=== PATIENT | female | born 1965 | race Caucasian/White ===

== ENCOUNTER 2017-06-23 09:29 | Emergency (ER) | payer OTHER ==
--- OUTSIDE RECORDS SUMMARY | 2017-06-23 09:37 | XMS REPORT ---
:1965 External Reference #:[id number] Author Organization [facility] Address [address] [place] [address] Phone [phone] Care Team Providers Name Role Phone HCP given Primary Care Physician Unavailable Payers Type Date Identification Numbers Payment Provider Subscriber Health Maintenance Policy Number: [id number] Loraine Tk [facility] PayID: [id number] [address] [place] [address] Problems Date Description Provider Status Onset: 07/22/2004 Benign essential hypertension Sourav Woodson M.D. Active Onset: 01/14/2015 Essential hypertension Sourav Woodson M.D. Active Onset: 03/14/2017 Anxiety state Adis Boggs D.O. Active Onset: 03/14/2017 Moderate recurrent major depression Adis Boggs D.O. Active Family History Date Family Member(s) Problem(s) Comments Father High Blood Pressure : Father due to Lung (04/29/2015) (age Cancer 75 Years) Onset: Father Lung Cancer metastatic smoker quit (01/14/2015) (age in early 90s smoked 1/3 73 Years) or so ppd - for 25 yrs Onset: Father Colon Polyps benign polyps (05/09/2015) (age 68 Years) Mother Depression Mother High Blood Pressure Mother Rheumatoid Arthritis Mother Cervical Cancer COMPLETE HYST.AT AGE 27 leaving one ovary First Daughter Erema 28 months Number of Siblings Siblings: 1 sister First Sister Obesity First Sister Smoker First Sister Depression Paternal Grandmother Congestive Heart Failure (CHF) : (age 75 Paternal Grandmother due to NC Years) Paternal Grandmother High Blood Pressure Maternal Grandfather High Blood Pressure Maternal Grandmother Stroke Maternal Grandmother High Blood Pressure Maternal Grandmother Rheumatoid Arthritis Paternal Uncles Alcoholism Paternal Uncles Pancreatic Cancer in 60s Paternal Aunts Alcoholism Onset: (age 74 Paternal Aunts Alzheimer's Disease Years) Paternal Aunts Esophagus Cancer smoker Paternal Aunts Colon Cancer in 60s Social History Type Date Description Comments Education has bachelor's degreenursing degree - 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 Uses sunscreen Currently Active The patient is currently sexually active Contraceptive Methods Current methods of control used include condoms Age 1st [place] First intercourse was at age 17 # Partners in a Lifetime The patient has had over 10 sexual partners STD's No STD history Additional Info Sexual preference is men Allergies, Adverse Reactions, Alerts Date Description Reaction Status Severity Comments 07/22/2004 NKDA active Medications Medication Date Status Form Strength Qnty SIG Indications Ordering Provider Venlafaxine HCL Active Caps ER 150mg 90caps 1 capsule F41.9 Sopchak, ER 017 24HR by mouth Adis, D.O. daily for anxiety/de pression I10 Zyrtec Allergy 03/06/2014 Active Capsules 10mg OTC 1 cap by 472.0 Unknown mouth every day /prn Bisoprolol 08/15/2013 Active Tablets 5-6.25 90tab 1 by mouth I10 Sopchak, Fumarate/Hydrochl mg s daily Adis, orothiazide D.O. Multivitamins 07/06/2008 Active Tablets 100ta 1 po qd Sourav Woodson M.D. Amlodipine 12/20/2006 Active Tablets 5mg 90tab take 1 tablet I10 Sopchak, Besylate s by mouth once Adis, daily for D.O. blood pressure Doxycycline 02/19/2016 - Hx Capsules 100mg 42cap 1 every day I10 Sourav Riosclnataly 04/19/2016 s starting 2 A. days before Klepack, travel and M.D. every day for 4 weeks after returning Typhoid Vaccine 02/19/2016 - Hx 4unit 1 every other I10 Sourav Live Oral 04/19/2016 s day for 4 A. doses Lucien Woodson Melatonin 02/05/2016 - Hx Tablets 5mg as needed Unknown 09/02/2016 Sub Cyclobenzaprine 03/28/2015 - Hx Tablets 5mg 14tab 1-2 at home S39.012 Sourav HCL 04/03/2015 s every 4h as A A. needed for Chintan, muscle spasm M.D. pain don't take in same 24 hours as venlafaxine Bisoprolol 08/15/2013 - Hx Tablets 2.5-6. 90tab Take 1 Tablet 401.1 Sopchak, Fumarate/Hydrochl 08/15/2013 25mg s Once Daily Adis orothiazide For Blood D.O. Pressure. Venlafaxine HCL 05/11/2013 - Hx Tablets ER 75mg 90tab 1 every day F41.9 Sourav ER 03/14/2017 24HR s A. Lucien Woodson I10 Bisoprolol 05/04/2013 Hx Tablets 2.5-6.25mg 90tabs Take 1 401.1 Sourav Fumarate/Hydrochlorothiazide - Tablet A. 08/15/2013 Once Daily Chintan, For Blood M.D. Pressure. Pyridium 02/24/2013 Hx Tablets 200mg 9tabs 1 tab po 788.1 Silcoff, - tid, prn Romeo, 03/05/2013 M.D. Cipro 02/24/2013 Hx Tablets 250mg 6tabs 1 tab bid 788.1 Silcoff, - x 3 Romeo, 02/27/2013 M.D. Mediplast 40% Salicylic Acid 10/29/2011 Hx QS1Mo cut to the 078.19 Sourav Plaster - size of A. 02/26/2012 the corn Klepack, and apply M.D. after every shower qd to every other day Naftin 11/05/2010 Hx Cream 1% 90gm apply to 110.1 Sourav - entire A. 05/04/2011 foot and Klepack, toes and M.D. between toes bid Zyrtec 10/09/2010 Hx Tablets 10mg OTC take 1 472.0 Sourav - tablet A. 03/06/2014 evryday Chintan for M.D. allergies Ziac 10/09/2010 Hx Tablets 2.5-6.25mg 90tabs 1 qd for 401.1 Sourav - blood A. 05/04/2013 pressure Chintan, hold until M.D. needed Azithromycin 04/21/2010 Hx Tablets 250mg 6tabs 2 tabs day 462 Monique, - one, one Romeo, 06/30/2010 tab days M.D. 2-5 Guaifenesin/Codeine 04/21/2010 Hx Solution 100-10mg/5M 100ml 1-2 tsps 786.2 Monique, - L q4-6 hrs, Romeo, 07/28/2010 prn Lucien Claritin-D 24 Hour 10/14/2009 Hx Tablets 90tabs 1 po qpm 472.0 Sourav - ER 24HR A. 09/08/2010 Lucien Woodson Methylphenidate HCL 07/08/2009 Hx Tablets 10mg sig /2 to 314.00 Sourav - 2 bid A. 04/25/2012 Lucien Woodson Tamiflu 10/14/2008 Hx 75mg 10units 1 po bid 487.1 Sourav - A. 10/19/2008 Lucien Woodson Clarithromycin 09/10/2008 Hx Tablets 250mg 30tabs 1 po bid 786.2 Sourav - ANando 09/20/2008 Lucien Woodson Mediplast 40% Salicylic Acid 07/06/2008 Hx QS1Mo cut to the 700 Sourav Plaster - size of A. 07/26/2008 the corn Chintan, and apply M.DNando after every shower qd Amoxicillin 03/26/2008 Hx 500mg 45units 1 tid 461.2 Sourav - until gone A. 04/09/2008 Lucien Woodson Zithromax 03/09/2008 Hx Tablets 250mg 1Pack two 462 Sourav - tablets po A. 03/19/2008 day 1 then Chintan 1 tablet M.D. po day 2-5 Biaxin 09/10/2006 Hx Tablets 250mg 20tabs 1 PO bid 462 Sourav - Until Gone A. 09/20/2006 (Take Two Klepack, To Marline Taylor) Wellbutrin SR 12/20/2005 Hx Tablets 150mg 1 twice a 300.4 Sourav - week for a A. 01/19/2006 month then gutierrez Woodson M.D. Biaxin 06/22/2005 Hx Tablets 250mg 28tabs 1 PO bid 461.0 Sourav - Until Gone A. 07/06/2005 Lucien Woodson Amoxicillin 06/07/2005 Hx Tablets 500mg 30tabs 1 PO tid 461.9 Monique, - For Romeo, 06/17/2005 Sinusitis Lucien Ziac 01/16/2005 Hx Tablets 2.5mg;6.25 90tabs 1 qd for 401.1 Sourav - mg blood A. 10/09/2010 pressure Lucien Woodson Zoloft 07/22/2004 Hx Tablets 50mg 30tabs 1 po qd Sourav - A. 07/22/2004 Lucien Woodson Norvasc 07/22/2004 Hx Tablets 10mg 90tabs 1 po qd 401.1 Sourav - A. 09/20/2006 Lucien Woodson Dyazide 07/22/2004 Hx Capsules 25mg;37.5 90caps 1 for BP 401.1 Sourav - mg qd A. 01/16/2005 Lucien Woodson Wellbutrin SR 07/22/2004 Hx Tablets 150mg 90tabs 1 qd 300.4 Sourav - Priyanka 12/20/2005 Lucien Woodson Medications Administered in Office Medication Date Status Form Strength Qnty SIG Indications Ordering Provider TB Intradermal Administered Injection Sourav Reid 014 Lucien Woodson TB Intradermal Administered Injection Farideh Reid 013 [place], P.ANando TB Intradermal Administered Injection Sourav Reid 013 Lucien Woodson Immunizations CPT Code Status Date Vaccine Lot # [id number] Given 12/24/2016 Influenza Virus Vaccine, Quadrivalent, Split, Preservative Free 89263 Given 09/03/2016 Hep A, Adult [id number] 32836 Given 02/20/2016 Typhoid Vaccine Oral 62139 Given 02/19/2016 Hep A, Adult [id number] 84949 Given 01/30/2016 Influenza Virus Vaccine, Quadrivalent, Split, Im Use U-Flu Given 02/26/2015 Influenza,Unspecified 23986 Given 03/07/2014 Flu, Split Virus 3Yrs 79802 Given 01/22/2013 Flu, Split Virus 3Yrs 55969 Given 10/30/2012 MMR Virus Immunization [id number] 85766 Given 05/01/2012 Flu, Split Virus 3Yrs [id number] 46211 Given 03/02/2011 Flu, Split Virus 3Yrs [id number] 64314 Given 05/01/2010 MMR Virus Immunization [id number] 83263 Given 03/06/2009 flu mist - live influenza virus vaccine for [id number] intranasal use 71856 Given 03/09/2008 Adacel or Boostrix, TDaP [id number] 77900 Given 02/13/2008 Flu, Split Virus 3Yrs [id number] 14779 Given 03/14/2007 Flu, Split Virus 3Yrs [id number] 45238 Given 03/22/2006 Td Immunization [id number] 22923 Given 03/22/2006 Flu, Split Virus 3Yrs [id number] 73625 Given 03/04/1999 Hep B Immunization, Adult 13080 Given 08/08/1998 Hep B Immunization, Adult 52844 Given 07/11/1998 Hep B Immunization, Adult Vital Signs Date Vital Result Comment 05/30/2017 BP Systolic 146 mmHg missed morning BP med BP Diastolic 96 mmHg missed morning BP med Weight 173.00 lb 04/15/2017 BP Systolic 124 mmHg BP Diastolic 82 mmHg Height 62 inches 5'2" Weight 167.00 lb BMI (Body Mass Index) 30.5 kg/m2 03/14/2017 BP Systolic 130 mmHg BP Diastolic 84 mmHg Height 62 inches 5'2" Weight 171.00 lb BMI (Body Mass Index) 31.3 kg/m2 09/03/2016 BP Systolic 118 mmHg BP Diastolic 60 mmHg Heart Rate 66 /min Respiratory Rate 16 /min Height 62.25 inches 5'2.25" Weight 174.00 lb BMI (Body Mass Index) 31.6 kg/m2 04/20/2016 BP Systolic 138 mmHg BP Diastolic 90 mmHg Body Temperature 98.3 F Weight 166.00 lb 02/06/2016 BP Systolic 136 mmHg BP Diastolic 82 mmHg Heart Rate 70 /min Respiratory Rate 16 /min Height 62 inches 5'2" Weight 162.00 lb BMI (Body Mass Index) 29.6 kg/m2 08/11/2015 BP Systolic 130 mmHg BP Diastolic 78 mmHg Heart Rate 59 /min Weight 161.00 lb 05/09/2015 BP Systolic 135 mmHg k BP Diastolic 85 mmHg k Heart Rate 80 /min rrr Weight 161.00 lb 03/28/2015 BP Systolic 132 mmHg BP Diastolic 90 mmHg Height 62.5 inches 5'2.50" Weight 165.00 lb BMI (Body Mass Index) 29.7 kg/m2 01/14/2015 BP Systolic 122 mmHg k BP Diastolic 80 mmHg k Heart Rate 70 /min Respiratory Rate 16 /min Weight 159.00 lb 09/26/2014 BP Systolic 144 mmHg k BP Diastolic 83 mmHg k Heart Rate 70 /min rrr Respiratory Rate 16 /min Height 62.5 inches 5'2.50" Weight 162.00 lb BMI (Body Mass Index) 29.2 kg/m2 08/09/2014 BP Systolic 148 mmHg BP Diastolic 84 mmHg Weight 164.00 lb 06/13/2014 BP Systolic 149 mmHg home rdings not taken BP Diastolic 89 mmHg home rdings not taken Heart Rate 80 /min Weight 163.00 lb 03/07/2014 BP Systolic 138 mmHg BP Diastolic 84 mmHg Height 62.25 inches 5'2.25" Weight 154.00 lb BMI (Body Mass Index) 27.9 kg/m2 10/27/2013 BP Systolic 124 mmHg BP Diastolic 74 mmHg 10/25/2013 BP Systolic 118 mmHg K BP Diastolic 86 mmHg K Heart Rate 80 /min Weight 146.00 lb 09/10/2013 BP Systolic 138 mmHg home giiapxhh=232/80s BP Diastolic 90 mmHg home imsxpben=660/80s Heart Rate 70 /min rrr Respiratory Rate 16 /min Height 62 inches 5'2" Weight 166.00 lb BMI (Body Mass Index) 30.4 kg/m2 08/15/2013 BP Systolic 130 mmHg BP Diastolic 92 mmHg Body Temperature 98.1 F Weight 144.00 lb 06/11/2013 BP Systolic 136 mmHg BP Diastolic 90 mmHg Heart Rate 80 /min Weight 142.00 lb shoes on 05/11/2013 BP Systolic 140 mmHg BP Diastolic 90 mmHg 04/26/2013 BP Systolic 124 mmHg BP Diastolic 80 mmHg BP Systolic Recheck 132 mmHg BP Diastolic Recheck 76 mmHg Heart Rate 76 /min rrr Weight 140.00 lb 03/07/2013 BP Systolic 141 mmHg BP Diastolic 75 mmHg Heart Rate 67 /min Body Temperature 98.5 F 02/24/2013 BP Systolic 149 mmHg BP Diastolic 89 mmHg Heart Rate 68 /min Body Temperature 98.4 F Height 62 inches 5'2" Weight 143.00 lb BMI (Body Mass Index) 26.2 kg/m2 11/10/2012 BP Systolic 126 mmHg BP Diastolic 88 mmHg Heart Rate 71 /min Body Temperature 98.3 F 10/30/2012 BP Systolic 130 mmHg BP Diastolic 90 mmHg Weight 142.00 lb 05/01/2012 BP Systolic 130 mmHg bp at home same BP Diastolic 90 mmHg bp at home same Heart Rate 80 /min Respiratory Rate 16 /min Height 62 inches 5'2" Weight 154.00 lb goal in 2-3 mos would 143 BMI (Body Mass Index) 28.2 kg/m2 Last Menstrual Period 0 10/29/2011 BP Systolic 122 mmHg BP Diastolic 80 mmHg Height 62 inches 5'2" Weight 156.00 lb BMI (Body Mass Index) 28.5 kg/m2 04/29/2011 BP Systolic 120 mmHg BP Diastolic 86 mmHg Heart Rate 78 /min Weight 156.00 lb Last Menstrual Period 0 11/05/2010 BP Systolic 120 mmHg BP Diastolic 86 mmHg 10/09/2010 BP Systolic 128 mmHg BP Diastolic 90 mmHg Height 62 inches 5'2" Weight 152.00 lb BMI (Body Mass Index) 27.8 kg/m2 08/14/2010 BP Systolic 130 mmHg BP Diastolic 90 mmHg 04/21/2010 BP Systolic 135 mmHg BP Diastolic 97 mmHg Heart Rate 98 /min Body Temperature 100.2 F Weight 150.00 lb Last Menstrual Period 0 04/14/2010 BP Systolic 134 mmHg BP Diastolic 86 mmHg BP Systolic Recheck 132 mmHg BP Diastolic Recheck 78 mmHg Heart Rate 70 /min Respiratory Rate 16 /min Height 62.5 inches 5'2.50" Weight 155.00 lb BMI (Body Mass Index) 27.9 kg/m2 11/04/2009 BP Systolic 120 mmHg BP Diastolic 86 mmHg BP Systolic Recheck 125 mmHg BP Diastolic Recheck 74 mmHg Heart Rate 16 /min Body Temperature 98.5 F Weight 148.00 lb 07/08/2009 BP Systolic 134 mmHg BP Diastolic 80 mmHg BP Systolic Recheck 124 mmHg BP Diastolic Recheck 76 mmHg Heart Rate 80 /min Weight 150.00 lb Last Menstrual Period 0 06/17/2009 BP Systolic 116 mmHg BP Diastolic 90 mmHg Body Temperature 98.4 F Weight 154.00 lb 02/18/2009 BP Systolic 132 mmHg BP Diastolic 94 mmHg Weight 149.00 lb Last Menstrual Period 0 11/05/2008 BP Systolic 146 mmHg BP Diastolic 80 mmHg BP Systolic Recheck 132 mmHg BP Diastolic Recheck 72 mmHg Heart Rate 70 /min Respiratory Rate 16 /min 10/14/2008 BP Systolic 150 mmHg BP Diastolic 96 mmHg Body Temperature 98.6 F Weight 144.00 lb Last Menstrual Period 0 09/10/2008 BP Systolic 126 mmHg BP Diastolic 90 mmHg Body Temperature 98.4 F Weight 147.00 lb 07/06/2008 BP Systolic 138 mmHg 140/92 Home Cuff BP Diastolic 80 mmHg 140/92 Home Cuff BP Systolic Recheck 136 mmHg BP Diastolic Recheck 82 mmHg Heart Rate 70 /min Respiratory Rate 16 /min Weight 151.00 lb 03/26/2008 BP Systolic 120 mmHg BP Diastolic 78 mmHg Body Temperature 98.5 F Height 62.3 inches 5'2.30" 03/09/2008 BP Systolic 120 mmHg on home wnboqwn=584/79 BP Diastolic 80 mmHg on home rdrirom=565/79 Heart Rate 80 /min Respiratory Rate 16 /min Height 62.3 inches 5'2.30" Weight 146.00 lb BMI (Body Mass Index) 26.4 kg/m2 11/21/2007 BP Systolic 118 mmHg BP Diastolic 80 mmHg Heart Rate 70 /min Respiratory Rate 16 /min Height 62.3 inches 5'2.30" Weight 145.00 lb BMI (Body Mass Index) 26.3 kg/m2 Last Menstrual Period 0 08/21/2007 BP Systolic 154 mmHg 146/100 on her machine BP Diastolic 90 mmHg 146/100 on her machine BP Systolic Recheck 146 mmHg p64 BP Diastolic Recheck 100 mmHg p64 Heart Rate 64 /min Respiratory Rate 17 /min Height 62.3 inches 5'2.30" Weight 142.00 lb BMI (Body Mass Index) 25.7 kg/m2 03/14/2007 BP Systolic 150 mmHg home doing well 120-110/62-80 BP Diastolic 90 mmHg home doing well 120-110/62-80 BP Systolic Recheck 148 mmHg BP Diastolic Recheck 80 mmHg Heart Rate 80 /min Respiratory Rate 16 /min Height 62.3 inches 5'2.30" Weight 137.00 lb BMI (Body Mass Index) 24.8 kg/m2 Last Menstrual Period 0 12/20/2006 BP Systolic 140 mmHg BP Diastolic 90 mmHg BP Systolic Recheck 142 mmHg BP Diastolic Recheck 92 mmHg BP Systolic Standing Resting Right Arm 140 mmHg BP Diastolic Standing Resting Right Arm 87 mmHg Heart Rate 70 /min Respiratory Rate 16 /min Height 62.3 inches 5'2.30" Weight 140.00 lb BMI (Body Mass Index) 25.4 kg/m2 Last Menstrual Period 0 10/04/2006 BP Systolic 122 mmHg BP Diastolic 84 mmHg Height 62.3 inches 5'2.30" 09/20/2006 BP Systolic 124 mmHg office visit--pts cuff 132/76----left arm BP Diastolic 80 mmHg office visit--pts cuff 132/76----left arm Height 62.3 inches 5'2.30" 09/06/2006 BP Systolic 120 mmHg 1teens over 70s BP Diastolic 90 mmHg 1teens over 70s Respiratory Rate 16 /min Body Temperature 98.8 F Height 62.3 inches 5'2.30" Weight 149.00 lb BMI (Body Mass Index) 27.0 kg/m2 06/21/2006 BP Systolic 142 mmHg BP Diastolic 86 mmHg BP Systolic Recheck 140 mmHg BP Diastolic Recheck 84 mmHg Heart Rate 80 /min Respiratory Rate 16 /min Height 62.3 inches 5'2.30" Weight 160.00 lb BMI (Body Mass Index) 29.0 kg/m2 03/22/2006 BP Systolic 120 mmHg BP Diastolic 78 mmHg Body Temperature 98.7 F Height 62.3 inches 5'2.30" Weight 160.00 lb BMI (Body Mass Index) 29.0 kg/m2 Last Menstrual Period 0 12/20/2005 BP Systolic 116 mmHg lg cuff BP Diastolic 78 mmHg lg cuff Height 62.3 inches 5'2.30" Weight 161.00 lb BMI (Body Mass Index) 29.2 kg/m2 09/25/2005 BP Systolic 116 mmHg PT. Machine 124/90 BP Diastolic 88 mmHg PT. Machine 124/90 Heart Rate 68 /min Respiratory Rate 16 /min Height 62.3 inches 5'2.30" Weight 166.00 lb BMI (Body Mass Index) 30.1 kg/m2 06/22/2005 BP Systolic 136 mmHg BP Diastolic 86 mmHg BP Systolic Recheck 138 mmHg BP Diastolic Recheck 85 mmHg Heart Rate 80 /min Respiratory Rate 16 /min Body Temperature 98.5 F Height 62.3 inches 5'2.30" Weight 163.00 lb BMI (Body Mass Index) 29.5 kg/m2 Last Menstrual Period 0 06/07/2005 BP Systolic 126 mmHg BP Diastolic 100 mmHg Body Temperature 98.0 F Height 62.3 inches 5'2.30" Weight 160.00 lb BMI (Body Mass Index) 29.0 kg/m2 03/23/2005 BP Systolic 136 mmHg (pt machine 138/92/right arm)left 162/100 BP Diastolic 90 mmHg (pt machine 138/92/right arm)left 162/100 BP Systolic Recheck 132 mmHg BP Diastolic Recheck 90 mmHg Heart Rate 80 /min Respiratory Rate 16 /min Height 62.3 inches 5'2.30" Weight 160.00 lb BMI (Body Mass Index) 29.0 kg/m2 03/23/2005 Height 62.3 inches 5'2.30" 01/16/2005 BP Systolic 158 mmHg BP Diastolic 100 mmHg BP Systolic Recheck 152 mmHg BP Diastolic Recheck 92 mmHg Heart Rate 80 /min rrr Respiratory Rate 16 /min Height 62.3 inches 5'2.30" Weight 156.00 lb BMI (Body Mass Index) 28.3 kg/m2 08/06/2004 BP Systolic 168 mmHg Pt's cuff L 172/107 BP Diastolic 100 mmHg Pt's cuff L 172/107 BP Systolic Recheck 148 mmHg With Large And Reg Cuff BP Diastolic Recheck 92 mmHg With Large And Reg Cuff Heart Rate 80 /min RRR Respiratory Rate 16 /min Height 62.3 inches 5'2.30" Weight 161.00 lb BMI (Body Mass Index) 29.2 kg/m2 07/22/2004 BP Systolic 150 mmHg BP Diastolic 100 mmHg BP Systolic Recheck 150 mmHg Large Adult Cuff BP Diastolic Recheck 90 mmHg Large Adult Cuff Heart Rate 90 /min RRR Respiratory Rate 16 /min Height 62.3 inches 5'2.30" Weight 167.00 lb BMI (Body Mass Index) 30.2 kg/m2 Results Test Date Test Result H/L Range Note Laboratory test finding 04/15/2017 Glucose 122 Laboratory test finding 10/25/2016 HPV Rna Ww/Reflex Negative Negative 1 , 2 Genotype Urine Micro Inhouse 09/03/2016 Ua WBC - 3 Ua RBC - 3 Ua Casts - 3 Ua Epi - 3 Ua Other - 3 Ua Glucose - 3 Ua Bilirubin - 3 Ua Ketones - 3 Ua Specific [place] 1.005 3 Ua Blood - 3 Ua PH 5.0 3 Ua Protein - 3 Ua Urobilinogen - 3 Ua Nitrite - 3 Ua Leukocytes - 3 Comp Metabolic Panel 08/31/2016 Sodium 139 mmol/L 133-145 Potassium 3.7 mmol/L 3.5-5.0 Chloride 99 mmol/L Low 101-111 Glucose 109 mg/dL High 70-100 Blood Urea Nitrogen 19 mg/dL 6-24 Creatinine 0.90 mg/dL 0.51-0.95 BUN/Creatinine Ratio 21.1 High 8-20 Calcium 9.8 mg/dL 8.6-10.3 Total Protein 6.9 g/dL 6.4-8.9 Albumin 4.4 g/dL 3.2-5.2 Globulin 2.5 g/dL 2-4 Albumin/Globulin Ratio 1.8 1-3 Total Bilirubin 0.60 mg/dL 0.2-1.0 Alt 25 U/L 7-52 Ast 18 U/L 13-39 Egfr Non- 66.0 >60 Egfr 84.9 >60 4 Co2 Carbon Dioxide 32 mmol/L 22-32 Anion Gap 8 mmol/L 2-11 Alkaline Phosphatase 55 U/L 34-104 CBC Auto Diff 08/31/2016 White Blood Count 5.4 10^3/uL 3.5-10.8 Red Blood Count 5.30 10^6/uL 4.0-5.4 Hemoglobin 15.6 g/dL 12.0-16.0 Hematocrit 45 % 35-47 Mean Corpuscular Volume 85 fL 80-97 Mean Corpuscular Hemoglobin 29 pg 27-31 Mean Corpuscular HGB Conc 35 g/dL 31-36 Red Cell Distribution Width 13 % 10.5-15 Platelet Count 203 10^3/uL 150-450 Mean Platelet Volume 8 um3 7.4-10.4 Abs Neutrophils 3.0 10^3/uL 1.5-7.7 Abs Lymphocytes 1.9 10^3/uL 1.0-4.8 Abs Monocytes 0.3 10^3/uL 0-0.8 Abs Eosinophils 0.1 10^3/uL 0-0.6 Abs Basophils 0 10^3/uL 0-0.2 Abs Nucleated RBC 0 10^3/uL Granulocyte % 55.5 % 38-83 Lymphocyte % 36.0 % 25-47 Monocyte % 6.3 % 1-9 Eosinophil % 1.4 % 0-6 Basophil % 0.8 % 0-2 Nucleated Red Blood Cells % 0 CBC Auto Diff 04/20/2016 White Blood Count 5.2 10^3/uL 3.5-10.8 Red Blood Count 5.03 10^6/uL 4.0-5.4 Hemoglobin 14.9 g/dL 12.0-16.0 Hematocrit 43 % 35-47 Mean Corpuscular Volume 85 fL 80-97 Mean Corpuscular Hemoglobin 30 pg 27-31 Mean Corpuscular HGB Conc 35 g/dL 31-36 Red Cell Distribution Width 12 % 10.5-15 Platelet Count 173 10^3/uL 150-450 Mean Platelet Volume 8 um3 7.4-10.4 Abs Neutrophils 3.3 10^3/uL 1.5-7.7 Abs Lymphocytes 1.5 10^3/uL 1.0-4.8 Abs Monocytes 0.2 10^3/uL 0-0.8 Abs Eosinophils 0.1 10^3/uL 0-0.6 Abs Basophils 0 10^3/uL 0-0.2 Abs Nucleated RBC 0 10^3/uL Granulocyte % 63.2 % 38-83 Lymphocyte % 29.9 % 25-47 Monocyte % 4.6 % 1-9 Eosinophil % 1.7 % 0-6 Basophil % 0.6 % 0-2 Nucleated Red Blood Cells % 0 Comp Metabolic Panel 04/20/2016 Sodium 139 mmol/L 133-145 Potassium 3.8 mmol/L 3.5-5.0 Chloride 102 mmol/L 101-111 Co2 Carbon Dioxide 31 mmol/L 22-32 Anion Gap 6 mmol/L 2-11 Glucose 85 mg/dL 70-100 Blood Urea Nitrogen 12 mg/dL 6-24 Creatinine 0.85 mg/dL 0.51-0.95 BUN/Creatinine Ratio 14.1 8-20 Calcium 9.4 mg/dL 8.6-10.3 Total Protein 6.8 g/dL 6.4-8.9 Albumin 4.4 g/dL 3.2-5.2 Globulin 2.4 g/dL 2-4 Albumin/Globulin Ratio 1.8 1-3 Total Bilirubin 0.50 mg/dL 0.2-1.0 Alkaline Phosphatase 48 U/L 34-104 Alt 22 U/L 7-52 Ast 17 U/L 13-39 Egfr Non- 70.5 >60 Egfr 90.7 >60 5 Laboratory test 03/06/2016 Rapid Strep Negative Negative 6 finding Molecular Laboratory test 09/18/2015 Surgical Interface SEE RESULT BELOW 7, 8 finding Order Urine Micro Inhouse 08/11/2015 Ua WBC 0-2 9 Ua RBC 0-2 9 Ua Casts - 9 Ua Epi 0-3 9 Ua Other - 9 Ua Glucose - 9 Ua Bilirubin - 9 Ua Ketones - 9 Ua Specific [place] 1.005 9 Ua Blood [place] Tr 9 Ua PH 5.0 9 Ua Protein - 9 Ua Urobilinogen - 9 Ua Nitrite - 9 Ua Leukocytes tr 9 Laboratory test finding 08/11/2015 Magnesium 2.0 mg/dL 1.9-2.7 Comp Metabolic Panel 08/11/2015 Sodium 139 mmol/L 133-145 Potassium 3.8 mmol/L 3.5-5.0 Chloride 101 mmol/L 101-111 Co2 Carbon Dioxide 32 mmol/L 22-32 Anion Gap 6 mmol/L 2-11 Glucose 80 mg/dL 70-100 Blood Urea Nitrogen 20 mg/dL 6-24 Creatinine 0.91 mg/dL 0.51-0.95 BUN/Creatinine Ratio 22.0 High 8-20 Calcium 9.4 mg/dL 8.6-10.3 Total Protein 6.5 g/dL 6.4-8.9 Albumin 4.5 g/dL 3.2-5.2 Globulin 2.0 g/dL 2-4 Albumin/Globulin Ratio 2.3 1-3 Total Bilirubin 0.60 mg/dL 0.2-1.0 Alkaline Phosphatase 47 U/L 34-104 Alt 19 U/L 7-52 Ast 18 U/L 13-39 Egfr Non- 65.4 >60 Egfr 84.2 >60 10 Laboratory test finding 08/11/2015 Erythrocyte Sed Rate 7 mm/Hr 0-30 Folic Acid (Folate) > 20.00 ng/mL >3.99 Heavy Metal Blool 08/11/2015 Arsenic <1 ng/mL 0-12 Lead <1.0 g/dL 0.0-4.9 Mercury 2 ng/mL 0-9 Cadmium 0.2 ng/mL 0.0-4.[address] [place] [id number] [place] [address] Guardian First Name TK Guardian Last Name NICOLE Home Phone [phone] Venous/Capillary Heavy Metals VENOUS Patient Race CAU 11 Laboratory test finding 08/11/2015 TSH (Thyroid Stim Horm) 1.46 ?IU/mL 0.34-5.60 Vitamin B12 716 pg/mL 180-914 12 CBC Auto Diff 08/11/2015 White Blood Count 4.4 10^3/uL 3.5-10.8 Red Blood Count 4.84 10^6/uL 4.0-5.4 Hemoglobin 14.7 g/dL 12.0-16.0 Hematocrit 41 % 35-47 Mean Corpuscular Volume 84 fL 80-97 Mean Corpuscular Hemoglobin 30 pg 27-31 Mean Corpuscular HGB Conc 36 g/dL 31-36 Red Cell Distribution Width 12 % 10.5-15 Platelet Count 200 10^3/uL 150-450 Mean Platelet Volume 8 um3 7.4-10.4 Abs Neutrophils 2.3 10^3/uL 1.5-7.7 Abs Lymphocytes 1.6 10^3/uL 1.0-4.8 Abs Monocytes 0.3 10^3/uL 0-0.8 Abs Eosinophils 0.1 10^3/uL 0-0.6 Abs Basophils 0.1 10^3/uL 0-0.2 Abs Nucleated RBC 0.03 10^3/uL Granulocyte % 52.6 % 38-83 Lymphocyte % 36.2 % 25-47 Monocyte % 7.9 % 1-9 Eosinophil % 1.7 % 0-6 Basophil % 1.6 % 0-2 Nucleated Red Blood Cells % 0.6 Laboratory test finding 08/11/2015 Vitamin D Total 25(Oh) 34.5 ng/mL 30- 50 Hemoglobin A1c (Glyco HGB) 4.7 % Less than 6.0 13 Urine Micro Inhouse 03/28/2015 Ua WBC - 9 Ua RBC 0-2 9 Ua Casts - 9 Ua Epi 0-6 9 Ua Other - 9 Ua Glucose - 9 Ua Bilirubin - 9 Ua Ketones - 9 Ua Specific [place] 1.015 9 Ua Blood NH Tr 9 Ua PH 5.0 9 Ua Protein - 9 Ua Urobilinogen - 9 Ua Nitrite - 9 Ua Leukocytes - 9 Urine Micro Inhouse 01/14/2015 Ua WBC - Ua RBC - Ua Casts - Ua Epi - Ua Other - Ua Glucose - Ua Bilirubin - Ua Ketones - Ua Specific [place] 1.010 Ua Blood - Ua PH 6.0 Ua Protein - Ua Urobilinogen - Ua Nitrite - Ua Leukocytes - Urine Micro Inhouse 09/26/2014 Ua WBC 0-3 14 Ua RBC - 14 Ua Casts - 14 Ua Epi 3-6 14 Ua Other sediment, few bacteria 14 Ua Glucose - 14 Ua Bilirubin - 14 Ua Ketones - 14 Ua Specific [place] 1.020 14 Ua Blood - 14 Ua PH 6.0 14 Ua Protein tr 14 Ua Urobilinogen - 14 Ua Nitrite - 14 Ua Leukocytes tr 14 Comp Metabolic Panel 09/26/2014 Sodium 139 mmol/L 133-145 Potassium 3.7 mmol/L 3.5-5.0 Chloride 101 mmol/L 101-111 Co2 Carbon Dioxide 31 mmol/L 22-32 Anion Gap 7 mmol/L 2-11 Glucose 86 mg/dL 70-100 Blood Urea Nitrogen 21 mg/dL 6-24 Creatinine 0.90 mg/dL 0.51-0.95 BUN/Creatinine Ratio 23.3 High 8-20 Calcium 9.9 mg/dL 8.6-10.3 Total Protein 6.6 g/dL 6.4-8.9 Albumin 4.6 g/dL 3.2-5.2 Globulin 2.0 g/dL 2-4 Albumin/Globulin Ratio 2.3 1-3 Total Bilirubin 0.60 mg/dL 0.2-1.0 Alkaline Phosphatase 46 U/L 34-104 Alt 21 U/L 7-52 Ast 18 U/L 13-39 Egfr Non- 66.5 >60 Egfr 85.6 >60 15 Laboratory test finding 09/26/2014 TSH (Thyroid Stim Horm) 2.40 ?IU/mL 0.34-5.60 CBC Auto Diff 09/26/2014 White Blood Count 5.4 10^3/uL 4.8-10.8 Red Blood Count 5.16 10^6/uL 4.0-5.4 Hemoglobin 15.5 g/dL 12.0-16.0 Hematocrit 45 % 35-47 Mean Corpuscular Volume 86 fL 80-97 Mean Corpuscular Hemoglobin 30 pg 27-31 Mean Corpuscular HGB Conc 35 g/dL 31-36 Red Cell Distribution Width 13 % 10.5-15 Platelet Count 181 10^3/uL 150-450 Mean Platelet Volume 8 um3 7.4-10.4 Abs Neutrophils 3.5 10^3/uL 1.5-7.7 Abs Lymphocytes 1.4 10^3/uL 1.0-4.8 Abs Monocytes 0.3 10^3/uL 0-0.8 Abs Eosinophils 0.1 10^3/uL 0-0.6 Abs Basophils 0.1 10^3/uL 0-0.2 Abs Nucleated RBC 0 10^3/uL Granulocyte % 65.7 % 38-83 Lymphocyte % 26.5 % 25-47 Monocyte % 5.8 % 1-9 Eosinophil % 1.0 % 0-6 Basophil % 1.0 % 0-2 Nucleated Red Blood Cells % 0.1 Urine Micro Inhouse 06/13/2014 Ua WBC - Ua RBC - Ua Casts - Ua Epi - Ua Other - Ua Glucose - Ua Bilirubin - Ua Ketones - Ua Specific [place] 1.010 Ua Blood - Ua PH 5.0 Ua Protein - Ua Urobilinogen - Ua Nitrite - Ua Leukocytes - Urine Micro Inhouse 03/07/2014 Ua WBC - Ua RBC 0-2 Ua Casts - Ua Epi 2-3 Ua Other - Ua Glucose - Ua Bilirubin - Ua Ketones - Ua Specific [place] 1.005 Ua Blood - Ua PH 6.5 Ua Protein - Ua Urobilinogen - Ua Nitrite - Ua Leukocytes - Urine Micro Inhouse 10/25/2013 Ua WBC - Ua RBC 2-4 Ua Casts - Ua Epi 0-2 Ua Other - Ua Glucose - Ua Bilirubin - Ua Ketones - Ua Specific [place] 1.010 Ua Blood - Ua PH 5.0 Ua Protein - Ua Urobilinogen - Ua Nitrite - Ua Leukocytes - Comp Metabolic Panel 10/25/2013 Sodium 137 mmol/L 133-145 Potassium 4.1 mmol/L 3.7-5.6 Chloride 102 mmol/L 101-111 Co2 Carbon Dioxide 30 mmol/L 22-32 Anion Gap 5 mmol/L 2-11 Glucose 78 mg/dL 70-100 Blood Urea Nitrogen 19 mg/dL 6-24 Creatinine 0.87 mg/dL 0.51-0.95 BUN/Creatinine Ratio 21.8 High 8-20 Calcium 9.2 mg/dL 8.6-10.3 Total Protein 6.5 g/dL 6.4-8.9 Albumin 4.5 g/dL 3.2-5.2 Globulin 2.0 g/dL 2-4 Albumin/Globulin Ratio 2.3 1-3 Total Bilirubin 0.70 mg/dL 0.2-1.0 Alkaline Phosphatase 43 U/L 34-104 Alt 23 U/L 7-52 Ast 22 U/L 13-39 Egfr Non- 69.5 >60 Egfr 89.4 >60 16 CBC Auto Diff 10/25/2013 White Blood Count 4.7 10^3/uL Low 4.8-10.8 Red Blood Count 4.84 10^6/uL 4.0-5.4 Hemoglobin 14.9 g/dL 12.0-16.0 Hematocrit 42 % 35-47 Mean Corpuscular Volume 86 fL 80-97 Mean Corpuscular Hemoglobin 31 pg 27-31 Mean Corpuscular HGB Conc 36 g/dL 31-36 Red Cell Distribution Width 12 % 10.5-15 Platelet Count 184 10^3/uL 150-450 Mean Platelet Volume 8 um3 7.4-10.4 Abs Neutrophils 2.8 10^3/uL 1.5-7.7 Abs Lymphocytes 1.5 10^3/uL 1.0-4.8 Abs Monocytes 0.3 10^3/uL 0-0.8 Abs Eosinophils 0.1 10^3/uL 0-0.6 Abs Basophils 0 10^3/uL 0-0.2 Abs Nucleated RBC 0.01 10^3/uL Granulocyte % 59.5 % 38-83 Lymphocyte % 32.1 % 25-47 Monocyte % 6.1 % 1-9 Eosinophil % 1.3 % 0-6 Basophil % 1.0 % 0-2 Nucleated Red Blood Cells % 0.2 Laboratory test finding 10/25/2013 Troponin I 0.00 ng/mL <0.03 17 B Type Natriuretic Peptide 104 pg/mL 18 Urine Micro Inhouse 09/10/2013 Ua WBC - Ua RBC - Ua Casts - Ua Epi many Ua Other fibers,crystals Ua Glucose - Ua Bilirubin - Ua Ketones - Ua Specific [place] 1.020 Ua Blood - Ua PH 5.0 Ua Protein - Ua Urobilinogen - Ua Nitrite - Ua Leukocytes - Basic Metabolic Panel 04/26/2013 Sodium 137 mmol/L 133-145 Potassium 3.9 mmol/L 3.5-5.0 Chloride 101 mmol/L 101-111 Co2 Carbon Dioxide 31.0 mmol/L 22-32 Anion Gap 5.0 mmol/L 2-11 Glucose 80 mg/dL 70-100 Blood Urea Nitrogen 21 mg/dL 6-24 Creatinine 0.80 mg/dL 0.50-1.40 BUN/Creatinine Ratio 26.3 High 8-20 Calcium 9.5 mg/dL 8.1-9.9 Egfr Non- 76.6 >60 Egfr 98.5 >60 19 Urine Micro Inhouse 04/26/2013 Ua WBC 0-1 Ua RBC 0-1 Ua Casts - Ua Epi 1-5 Ua Other fibers 0-2 Ua Glucose - Ua Bilirubin - Ua Ketones - Ua Specific [place] 1.015 Ua Blood - Ua PH 6.0 Ua Protein - Ua Urobilinogen - Ua Nitrite - Ua Leukocytes - Ua Inhouse 03/07/2013 Ua Glucose - Ua Bilirubin - Ua Ketones - Ua Specific [place] 1.005 Ua Blood - Ua PH 5.0 Ua Protein - Ua Urobilinogen - Ua Nitrite - Ua Leukocytes - Ua Inhouse 02/26/2013 Ua Glucose - Ua Bilirubin - Ua Ketones - Ua Specific [place] 1.005 Ua Blood - Ua PH 6.0 Ua Protein - Ua Urobilinogen - Ua Nitrite + Ua Leukocytes - Urine Culture And Sensitivities 02/26/2013 Urine Culture (SEE NOTE) 20 Ua Inhouse 02/24/2013 Ua Glucose - Ua Bilirubin - Ua Ketones - Ua Specific [place] 1.000 Ua Blood - Ua PH 7.5 Ua Protein - Ua Urobilinogen - Ua Nitrite - Ua Leukocytes - Lipid Profile (Trig/Chol/HDL) 11/10/2012 Triglycerides 64 mg/dL 40-200 Cholesterol 189 mg/dL Less than 200 HDL Cholesterol 59 mg/dL 40-60 21 Cholesterol/HDL Ratio 3.2 Average 1-4.44 LDL Cholesterol 117.2 High Less Than 100 22 CBC Auto Diff 11/10/2012 White Blood Count 5.0 10^3/uL 4.8-10.8 Red Blood Count 5.01 10^6/uL 4.0-5.4 Hemoglobin 15.0 g/dL 12.0-16.0 Hematocrit 44 % 35-47 Mean Corpuscular Volume 87 fL 80-97 Mean Corpuscular Hemoglobin 30 pg 27-31 Mean Corpuscular HGB Conc 34 g/dL 31-36 Red Cell Distribution Width 13 % 10.5-15 Platelet Count 185 10^3/uL 150-450 Mean Platelet Volume 8 um3 7.4-10.4 Abs Neutrophils 3.6 10^3/uL 1.5-7.7 Abs Lymphocytes 1.1 10^3/uL 1.0-4.8 Abs Monocytes 0.3 10^3/uL 0-0.8 Abs Eosinophils 0 10^3/uL 0-0.6 Abs Basophils 0 10^3/uL 0-0.2 Abs Nucleated RBC 0 10^3/uL Granulocyte % 71.2 % 38-83 Lymphocyte % 21.8 % Low 25-47 Monocyte % 5.6 % 1-9 Eosinophil % 0.7 % 0-6 Basophil % 0.7 % 0-2 Nucleated Red Blood Cells % 0 Ua Inhouse 11/10/2012 Ua Glucose - Ua Bilirubin - Ua Ketones - Ua Specific [place] 1.005 Ua Blood - Ua PH 5.0 Ua Protein - Ua Urobilinogen - Ua Nitrite - Ua Leukocytes - Varicella Zoster Igg AB 10/30/2012 Varicella-Zoster IgG Antibody Positive 23 Varicella IgG Antibody Index 2.9 24 Laboratory test finding 05/01/2012 TSH (Thyroid Stimulating 1.29 miu/mL 0.34-5.60 Horm) Hepatitis C Antibody Nonreactive Nonreactive Urine Micro Inhouse 05/01/2012 Ua WBC - Ua RBC - Ua Casts - Ua Epi - Ua Other - Ua Glucose - Ua Bilirubin - Ua Ketones - Ua Specific [place] 1.005 Ua Blood - Ua PH 5.0 Ua Protein - Ua Urobilinogen - Ua Nitrite - Ua Leukocytes - Lipid Profile (Trig/Chol/HDL) 04/28/2012 Triglycerides 53 mg/dL 40-200 Cholesterol 242 mg/dL High Less than 200 HDL Cholesterol 61 mg/dL High 40-60 25 Cholesterol/HDL Ratio 4.0 Average 1-4.44 LDL Cholesterol 170.4 mg/dL High Less Than 100 26 CBC Auto Diff 04/28/2012 White Blood Count 4.8 10^3/uL 4.8-10.8 Red Blood Count 5.21 10^6/uL 4.0-5.4 Hemoglobin 15.9 g/dL 12.0-16.0 Hematocrit 45 % 35-47 Mean Corpuscular Volume 87 fL 80-97 Mean Corpuscular Hemoglobin 31 pg 27-31 Mean Corpuscular HGB Conc 35 g/dL 31-36 Red Cell Distribution Width 13 % 10.5-15 Platelet Count 167 10^3/uL 150-450 Mean Platelet Volume 8 um3 7.4-10.4 Abs Neutrophils 3.1 10^3/uL 1.5-7.7 Abs Lymphocytes 1.3 10^3/uL 1.0-4.8 Abs Monocytes 0.3 10^3/uL 0-0.8 Abs Eosinophils 0.1 10^3/uL 0-0.6 Abs Basophils 0 10^3/uL 0-0.2 Abs Nucleated RBC 0.01 10^3/uL Granulocyte % 64.8 % 38-83 Lymphocyte % 27.4 % 25-47 Monocyte % 6.1 % 1-9 Eosinophil % 1.2 % 0-6 Basophil % 0.5 % 0-2 Nucleated Red Blood Cells % 0.1 Basic Metabolic Panel 04/28/2012 Sodium 140 mmol/L 133-145 Potassium 4.3 mmol/L 3.5-5.0 Chloride 105 mmol/L 101-111 Co2 Carbon Dioxide 31.0 mmol/L 22-32 Anion Gap 4.0 mmol/L 2-11 Glucose 71 mg/dL 70-100 Blood Urea Nitrogen 17 mg/dL 6-24 Creatinine 0.80 mg/dL 0.50-1.40 BUN/Creatinine Ratio 21.3 High 8-20 Calcium 9.5 mg/dL 8.1-9.9 Egfr Non- 76.9 >60 Egfr 98.9 >60 27 Urine Micro Inhouse 04/29/2011 Ua WBC - Ua RBC - Ua Casts - Ua Epi - Ua Other - Ua Glucose - Ua Bilirubin - Ua Ketones - Ua Specific [place] 1.025 Ua Blood - Ua PH 5.0 Ua Protein - Ua Urobilinogen - Ua Nitrite - Ua Leukocytes - Cytology 03/22/2011 Cytology 28 <SEE NOTE> Fungal Identification 10/09/2010 Fungal Identification [PITHOMYCES SPEC 29 - [facility] <SEE NOTE> Fungal Identification - [place] PITHOMYCES SPECI <SEE NOTE> 30 Laboratory test finding 10/09/2010 Fungus Culture Skin/Nails MOLD 31, 32 Laboratory test finding 04/21/2010 Culture Throat Rapid Screen neg Culture Throat neg Laboratory test finding 11/04/2009 TSH 1.06 MIU/ML 0.34-5.60 Comp Metabolic Panel 11/04/2009 Sodium 139 mmol/L 135-145 Potassium 3.6 mmol/L 3.5-5.0 Chloride 103 mmol/L 101-111 Co2 (Carbon Dioxide) 29.0 mmol/L 22-32 Anion Gap 7.0 mmol/L 2-11 33 Glucose 89 mg/dL 70-100 34 BUN 16 mg/dL 6-24 Creatinine 0.80 mg/dL 0.50-1.40 One Over Creatinine 1.20 BUN/Creatinine Ratio 20.0 8-20 Calcium 9.3 mg/dL 8.1-9.9 35 Total Protein 6.4 GM/DL 6.2-8.1 Albumin 4.3 GM/DL 3.6-5.4 Globulin 2.1 GM/DL 2-4 Albumin/Globulin Ratio 2.0 1-3 Bilirubin Total 0.8 mg/dL 0.4-1.5 36 Alkaline Phosphatase 38 U/L 30-110 Alt (SGPT) 31 U/L 14-54 Ast (Sgot) 23 U/L 12-42 eGFR Non- 82.8 > 60 eGFR 100.2 > 60 37 CBC With Electronic Diff 11/04/2009 White Blood Count 7.1 CUMM 4.8-10.8 Red Cell Count 4.66 CUMM 4.2-5.4 Hemoglobin 14.1 g/dL 12.0-16.0 Hematocrit 40 % 35-47 Mean Corpuscular Volume 86 um3 79-97 Mean Corpuscular Hemoglob 30 pg 27-31 Mean Corpuscular HGB Cone 35 g/dL 32-36 Redcell Distribution WDTH 12 % 10.5-15 Platelet Count 188 CUMM 150-450 Mean Platelet Volume 7.4 um3 7.4-10.4 Gran % 69.8 % 38-83 Lymph % 23.3 % Low 25-47 Mononuclear % 5.4 % 1-9 Eosinophil % 1.1 % 0-6 Basophil % 0.4 % 0-2 Abs Lymphs 1.7 1.0-4.8 Abs Mononuclear 0.4 0-0.8 Absolute Neutrophil Count 5.0 1.5-7.7 Abs Eosinophils 0.1 0-0.6 Abs Basophils 0 0-0.2 Urine Micro Inhouse 11/04/2009 Ua WBC occ Ua RBC - Ua Casts - Ua Epi 4-5 Ua Other - Ua Glucose - Ua Bilirubin - Ua Ketones - Ua Specific [place] 1.020 Ua Blood - Ua PH 5.0 Ua Protein - Ua Urobilinogen - Ua Nitrite - Ua Leukocytes - Basic Metabolic Panel 10/28/2009 Sodium 139 mmol/L 135-145 Potassium 3.9 mmol/L 3.5-5.0 Chloride 102 mmol/L 101-111 Co2 (Carbon Dioxide) 31.0 mmol/L 22-32 Anion Gap 6.0 mmol/L 2-11 38 Glucose 100 mg/dL 70-100 39 BUN 15 mg/dL 6-24 Creatinine 0.80 mg/dL 0.50-1.40 One Over Creatinine 1.20 BUN/Creatinine Ratio 18.8 8-20 Calcium 9.5 mg/dL 8.1-9.9 40 eGFR Non- 82.8 > 60 eGFR 100.2 > 60 41 Cytology 08/12/2009 Cytology <SEE NOTE> 42 Urine Micro Inhouse 07/08/2009 Ua WBC - Ua RBC - Ua Casts - Ua Epi occ Ua Other - Ua Glucose - Ua Bilirubin - Ua Ketones - Ua Specific [place] 1.010 Ua Blood - Ua PH 5.0 Ua Protein - Ua Urobilinogen - Ua Nitrite - Ua Leukocytes - Laboratory test finding 06/17/2009 Culture Throat neg Culture Throat Rapid Screen neg Ua Inhouse 02/18/2009 Ua Glucose - Ua Bilirubin - Ua Ketones - Ua Specific [place] 1.005 Ua Blood - Ua PH 7.5 Ua Protein - Ua Urobilinogen - Ua Nitrite - Ua Leukocytes - Urine Micro Inhouse 02/18/2009 Urine Microscopic Inhouse NEG Basic Metabolic Panel 11/11/2008 Sodium 140 mmol/L 135-145 Potassium 3.6 mmol/L 3.5-5.0 Chloride 105 mmol/L 101-111 Co2 (Carbon Dioxide) 28.0 mmol/L 22-32 Anion Gap 7.0 mmol/L 2-11 43 Glucose 124 mg/dL High 70-100 44 BUN 16 mg/dL 6-24 Creatinine 0.87 mg/dL 0.50-1.40 One Over Creatinine 1.10 BUN/Creatinine Ratio 18.4 8-20 Calcium 9.3 mg/dL 8.1-9.9 45 eGFR Non- 75.5 > 60 eGFR 91.4 > 60 46 Urine Micro Inhouse 11/05/2008 Urine Microscopic Inhouse 5-10 epi,debri Ua Inhouse 11/05/2008 Ua Glucose - Ua Bilirubin - Ua Ketones - Ua Specific [place] 1.030 Ua Blood - Ua PH 5.0 Ua Protein - Ua Urobilinogen - Ua Nitrite - Ua Leukocytes - Influenza AB Panel Serum 10/14/2008 Influenza A Igg 1:160 () Influenza A Igm <1:10 () 47 Influenza B Igg 1:160 () Influenza B Igm <1:10 () 48 Laboratory test finding 09/10/2008 Bordetella Pertussis neg 49 Urine Micro Inhouse 08/21/2007 Urine Microscopic Inhouse - Ua Inhouse 08/21/2007 Ua Glucose - Ua Bilirubin - Ua Ketones - Ua Specific [place] 1.005 Ua Blood - Ua PH 6.0 Ua Protein - Ua Urobilinogen - Ua Nitrite - Ua Leukocytes - Basic Metabolic Panel 03/14/2007 One Over Creatinine 1.25 Anion Gap 6.0 mmol/L 2-11 50 BUN 15 mg/dL 6-24 Calcium 9.6 mg/dL 8.7-10.2 Chloride 103 mmol/L 101-111 Co2 (Carbon Dioxide) 31.0 mmol/L 22-32 Glucose 91 mg/dL 70-105 Potassium 3.7 mmol/L 3.5-5.0 Sodium 140 mmol/L 135-145 BUN/Creatinine Ratio 18.8 8-20 Creatinine 0.8 mg/dL 0.5-1.4 Urine Micro Inhouse 03/14/2007 Urine Microscopic Inhouse occas epi Ua Inhouse 03/14/2007 Ua Glucose - Ua Bilirubin - Ua Ketones - Ua Specific [place] 1.005 Ua Blood - Ua PH 5.0 Ua Protein - Ua Urobilinogen - Ua Nitrite - Ua Leukocytes - Urine Micro Inhouse 12/20/2006 Urine Microscopic Inhouse - Ua Inhouse 12/20/2006 Ua Glucose - Ua Bilirubin - Ua Ketones - Ua Specific [place] 1.010 Ua Blood - Ua PH 5.0 Ua Protein - Ua Urobilinogen - Ua Nitrite - Ua Leukocytes - Urine Micro Inhouse 09/20/2006 Urine Microscopic Inhouse - Ua Inhouse 09/20/2006 Ua Glucose - Ua Bilirubin - Ua Ketones - Ua Specific [place] 1.015 Ua Blood - Ua PH 5.0 Ua Protein - Ua Urobilinogen - Ua Nitrite - Ua Leukocytes - Laboratory test finding 09/12/2006 Monospot NEGATIVE Negative CBC With Electronic Diff 09/12/2006 White Blood Count 4.5 CUMM Low 4.8- 10.8 Abs Basophils 0 0-0.2 Abs Eosinophils 0.1 0-0.6 Absolute Neutrophil Count 3.0 1.5-7.7 Abs Lymphs 1.2 1.0-4.8 Abs Mononuclear 0.2 0-0.8 Basophil % 0.4 % 0-2 Hematocrit 41 % 35-47 51 Hemoglobin 14.7 g/dL 12.0-16.0 Eosinophil % 1.2 % 0-6 Gran % 67.0 % 38-83 Lymph % 26.2 % 20-45 Mean Corpuscular HGB Cone 36 g/dL 32-36 Mean Corpuscular Hemoglob 30 pg 27-31 Mean Corpuscular Volume 83 um3 79-97 Mean Platelet Volume 8.3 um3 7.4-10.4 Mononuclear % 5.2 % 1-9 Platelet Count 179 CUMM 150-450 Red Cell Count 4.94 CUMM 4.2-5.4 Redcell Distribution WDTH 13 % 10.5-15 Laboratory test finding 09/06/2006 Culture Throat - Culture Throat Rapid Screen - Ua Inhouse 03/23/2006 Ua Glucose - Ua Bilirubin - Ua Ketones - Ua Specific [place] 1.015 Ua Blood - Ua PH 6.0 Ua Protein - Ua Urobilinogen - Ua Nitrite - Ua Leukocytes - Laboratory test finding 03/23/2006 Urine Microscopic Inhouse 5-10 epi's Basic Metabolic Panel 03/22/2006 One Over Creatinine 1.11 Anion Gap 9.0 mmol/L 2-11 52 BUN 14 mg/dL 6-24 Calcium 9.1 mg/dL 8.7-10.2 Chloride 102 mmol/L 101-111 Co2 (Carbon Dioxide) 29.0 mmol/L 22-32 Glucose 89 mg/dL 70-105 Potassium 3.3 mmol/L Low 3.5-5.0 Sodium 140 mmol/L 135-145 BUN/Creatinine Ratio 15.6 8-20 Creatinine 0.9 mg/dL 0.5-1.4 CBC With Electronic Diff 03/22/2006 White Blood Count 7.4 CUMM 4.8-10.8 Abs Basophils 0 0-0.2 Abs Eosinophils 0.1 0-0.6 Absolute Neutrophil Count 5.4 1.5-7.7 Abs Lymphs 1.5 1.0-4.8 Abs Mononuclear 0.4 0-0.8 Basophil % 0.2 % 0-2 Hematocrit 42 % 35-47 Hemoglobin 14.6 g/dL 12.0-16.0 Eosinophil % 1.0 % 0-6 Gran % 73.2 % 38-83 Lymph % 20.0 % 20-45 Mean Corpuscular HGB Cone 35 g/dL 32-36 Mean Corpuscular Hemoglob 30 pg 27-31 Mean Corpuscular Volume 86 um3 79-97 Mean Platelet Volume 7.9 um3 7.4-10.4 Mononuclear % 5.6 % 1-9 Platelet Count 228 CUMM 150-450 Red Cell Count 4.80 CUMM 4.2-5.4 Redcell Distribution WDTH 12 % 10.5-15 Laboratory test finding 03/22/2006 TSH 0.91 MIU/ML 0.34-5.60 Basic Metabolic Panel 09/14/2005 One Over Creatinine 1.11 Anion Gap 6.0 mmol/L 2-11 53 BUN 10 mg/dL 6-24 Calcium 9.2 mg/dL 8.7-10.2 Chloride 104 mmol/L 101-111 Co2 (Carbon Dioxide) 31.0 mmol/L 22-32 Glucose 100 mg/dL 70-105 Potassium 3.9 mmol/L 3.5-5.0 Sodium 141 mmol/L 135-145 BUN/Creatinine Ratio 11.1 8-20 Creatinine 0.9 mg/dL 0.5-1.4 Basic Metabolic Panel 03/23/2005 One Over Creatinine 0.90 Anion Gap 8.0 mmol/L 2-11 54 BUN 21 mg/dL 6-24 Calcium 9.7 mg/dL 8.7-10.2 Chloride 101 mmol/L 101-111 Co2 (Carbon Dioxide) 29.0 mmol/L 22-32 Glucose 66 mg/dL Low 70-105 Potassium 3.8 mmol/L 3.5-5.0 Sodium 138 mmol/L 135-145 BUN/Creatinine Ratio 19.1 8-20 Creatinine 1.1 mg/dL 0.5-1.4 Laboratory test finding 01/16/2005 Urine Microscopic Inhouse NEG Ua Inhouse 01/16/2005 Ua Glucose NEG Ua Bilirubin NEG Ua Ketones NEG Ua Specific [place] 1.010 Ua Blood NEG Ua PH 6.0 Ua Protein NEG Ua Urobilinogen NEG Ua Nitrite NEG Ua Leukocytes NEG Comp Metabolic Panel 07/30/2004 Anion Gap 8.0 mmol/L 2-11 55 Albumin/Globulin Ratio 2.0 1-3 Albumin 4.7 GM/DL 3.6-5.4 Alkaline Phosphatase 48 U/L 30-110 Alt (SGPT) 21 U/L 14-54 Ast (Sgot) 20 U/L 12-42 BUN 23 mg/dL 6-24 Calcium 9.8 mg/dL 8.7-10.2 Chloride 100 mmol/L Low 101-111 Co2 (Carbon Dioxide) 32.0 mmol/L 22-32 Creatinine 1.0 mg/dL 0.5-1.4 Globulin 2.3 GM/DL 2-4 Glucose 97 mg/dL 70-105 Potassium 3.9 mmol/L 3.5-5.0 Sodium 140 mmol/L 135-145 Bilirubin Total 0.7 mg/dL 0.4-1.5 Total Protein 7.0 GM/DL 6.2-8.1 BUN/Creatinine Ratio 23.0 High 8-20 Lipid Profile (Trig/Chol/HDL) 07/30/2004 Cholesterol 207 mg/dL High Less Than 200 56 Triglyceride 67 mg/dL 40-200 High Density Lipoprotein 46 mg/dL 40-60 Low Density Lipoprotein 148 mg/dL High Less Than 100 57 Cholesterol/HDL Ratio 4.50 AVERAGE High 1-4.44 Laboratory test finding 07/30/2004 TSH 1.94 MIU/ML 0.34-5.60 CBC With Electronic Diff 07/30/2004 White Blood Count 4.8 CUMM 4.8-10.8 Abs Basophils 0 0-0.2 Abs Eosinophils 0.1 0-0.6 Abs Grans 3.1 1.5-7.7 Abs Lymphs 1.3 1.0-4.8 Abs Mononuclear 0.3 0-0.8 Basophil % 0.7 % 0-2 Hematocrit 45 % 35-47 Hemoglobin 16.0 g/dL 12.0-16.0 Eosinophil % 1.9 % 0-6 Gran % 64.2 % 38-83 Lymph % 26.0 % 20-45 Mean Corpuscular HGB Cone 35 g/dL 32-36 Mean Corpuscular Hemoglob 30 pg 27-31 Mean Corpuscular Volume 85 um3 79-97 Mean Platelet Volume 8.0 um3 7.4-10.4 Mononuclear % 7.2 % 1-9 Platelet Count 246 CUMM 150-450 Red Cell Count 5.34 CUMM 4.2-5.4 Redcell Distribution WDTH 13 % 10.5-15 Ua Inhouse 07/22/2004 Ua Glucose neg Ua Bilirubin neg Ua Ketones neg Ua Specific [place] 1.005 Ua Blood neg Ua PH 5.0 Ua Protein neg Ua Urobilinogen neg Ua Nitrite neg Ua Leukocytes neg Laboratory test finding 07/22/2004 Urine Microscopic Inhouse neg 1 [id number] 2 The high-risk HPV types detected by the assay include: 16, 18, 31, 33, 35, 39, 45, 51, 52, 56, 58, 59, 66, and 68. 3 void, clear, yellow 4 Because ethnic data is not always readily available, this report includes an eGFR for both -Americans and non- Americans. The National Kidney Disease Education Program (NKDEP) does not endorse the use of the MDRD equation for patients that are not between the ages of 18 and 70, are , have extremes of body size, muscle mass, or nutritional status, or are non- or non-. According to the National Kidney Foundation, irrespective of diagnosis, the stage of the disease is based on the level of kidney function: Stage Description GFR(mL/min/1.73 m(2)) 1 Kidney damage with normal or decreased GFR 90 2 Kidney damage with mild decrease in GFR 60-89 3 Moderate decrease in GFR 30-59 4 Severe decrease in GFR 15-29 5 Kidney failure <15 (or dialysis) 5 Because ethnic data is not always readily available, this report includes an eGFR for both -Americans and non- Americans. The National Kidney Disease Education Program (NKDEP) does not endorse the use of the MDRD equation for patients that are not between the ages of 18 and 70, are , have extremes of body size, muscle mass, or nutritional status, or are non- or non-. According to the National Kidney Foundation, irrespective of diagnosis, the stage of the disease is based on the level of kidney function: Stage Description GFR(mL/min/1.73 m(2)) 1 Kidney damage with normal or decreased GFR 90 2 Kidney damage with mild decrease in GFR 60-89 3 Moderate decrease in GFR 30-59 4 Severe decrease in GFR 15-29 5 Kidney failure <15 (or dialysis) 6 Test Center Administrator: [id number] JACKELYN Bobby 7 [id number] SEE RESULT BELOW Name: JO ANN MEADE : [address]: Gamal Garrett MD Acct: [id number] Unit: [id number] AGE: 50 Location: [facility] Re09/18/15 SEX: F Status: REG REF SPEC: [id number] FAISAL: 09/18/15-1033 [facility] DR: Gamal Garrett MD REQ: [id number] RECD: 09/18/15-1614 STATUS: RUTH MICHELE DR: Sourav Woodson MD _ ORDERED: LEVEL IV/2 COMMENTS: [id number] FINAL DIAGNOSIS 1. Colon, ascending, biopsy: -- Tubular adenoma. -- No high grade dysplasia or malignancy. 2. Colon, at 50 cm, biopsy: -- Tubular adenoma. -- No high grade dysplasia or malignancy. CLINICAL HISTORY Screening colonoscopy - average risk. Aunt x2 colon cancer, Dad had polyps. POST-OPERATIVE DIAGNOSIS Colonoscopy to cecum, two polyps, ascending, 50 cm. Mild diverticulosis. GROSS DESCRIPTION 1. The specimen is received in formalin labeled, Ascending Colon Polyp, and consists of three yellow-white irregular to polypoid soft tissue fragments averaging 0.3 x 0.2 x 0.2 cm, which are entirely submitted in one cassette. 2. The specimen is received in formalin labeled, Colon Polyp at 50 cm, and consists of three yellow-white polypoid soft tissue fragments measuring 0.5 x 0.3 x 0.2 cm, 0.6 x 0.3 x 0.2 cm and 0.5 x 0.5 x 0.3 cm, which are entirely submitted in one cassette. Signed (signature on file) Bekah Subramanian MD [id number] END OF REPORT * ML=Testing performed at Main Lab DEPARTMENT OF PATHOLOGY, [address] [place] [address] Kg Hughes M.D. Director [facility] # [id number] 9 void, clear, yellow 10 Because ethnic data is not always readily available, this report includes an eGFR for both -Americans and non- Americans. The National Kidney Disease Education Program (NKDEP) does not endorse the use of the MDRD equation for patients that are not between the ages of 18 and 70, are , have extremes of body size, muscle mass, or nutritional status, or are non- or non-. According to the National Kid[employer] Foundation, irrespective of diagnosis, the stage of the disease is based on the level of kidney function: Stage Description GFR(mL/min/1.73 m(2)) 1 Kidney damage with normal or decreased GFR 90 2 Kidney damage with mild decrease in GFR 60-89 3 Moderate decrease in GFR 30-59 4 Severe decrease in GFR 15-29 5 Kidney failure <15 (or dialysis) 11 Test Performed by: [address] [address] [facility]: Sourav Chapa II, M.D., Ph.D. 12 Normal Range 180 to 914 Indeterminate Range 145 to 180 Deficient Range <145 13 Therapeutic target for the treatment of diabetes Mellitus patients is <7% HBA1C, and in selective patients <6.0%.Please refer to [place] [employer] Diabetic care guidelines for further information. 14 yellow, clear 15 Because ethnic data is not always readily available, this report includes an eGFR for both -Americans and non- Americans. The National Kidney Disease Education Program (NKDEP) does not endorse the use of the MDRD equation for patients that are not between the ages of 18 and 70, are , have extremes of body size, muscle mass, or nutritional status, or are non- or non-. According to the National Kidney Foundation, irrespective of diagnosis, the stage of the disease is based on the level of kidney function: Stage Description GFR(mL/min/1.73 m(2)) 1 Kidney damage with normal or decreased GFR 90 2 Kidney damage with mild decrease in GFR 60-89 3 Moderate decrease in GFR 30-59 4 Severe decrease in GFR 15-29 5 Kidney failure <15 (or dialysis) 16 Because ethnic data is not always readily available, this report includes an eGFR for both -Americans and non- Americans. The National Kidney Disease Education Program (NKDEP) does not endorse the use of the MDRD equation for patients that are not between the ages of 18 and 70, are , have extremes of body size, muscle mass, or nutritional status, or are non- or non-. According to the National Kidney Foundation, irrespective of diagnosis, the stage of the disease is based on the level of kidney function: Stage Description GFR(mL/min/1.73 m(2)) 1 Kidney damage with normal or decreased GFR 90 2 Kidney damage with mild decrease in GFR 60-89 3 Moderate decrease in GFR 30-59 4 Severe decrease in GFR 15-29 5 Kidney failure <15 (or dialysis) 17 Reference Range and Interpretation: TnI (ng/mL) Interpretation Less Than 0.03 ng/mL Not supportive of diagnosis of NC 0.03 - 0.50 ng/mL Indeterminate: suggest serial studies if clinically indicated. Greater than 0.5 ng/mL Consistent with diagnosis of NC 18 >100 to <200 pg/mL: likely compensated congestive heart failure (CHF) 200 to 400 pg/mL: likely moderate CHF >400 pg/mL: likely moderate to severe CHF [place] [facility] 19 Because ethnic data is not always readily available, this report includes an eGFR for both -Americans and non- Americans. The National Kidney Disease Education Program (NKDEP) does not endorse the use of the MDRD equation for patients that are not between the ages of 18 and 70, are , have extremes of body size, muscle mass, or nutritional status, or are non- or non-. According to the National Kidney Foundation, irrespective of diagnosis, the stage of the disease is based on the level of kidney function: Stage Description GFR(mL/min/1.73 m(2)) 1 Kidney damage with normal or decreased GFR 90 2 Kidney damage with mild decrease in GFR 60-89 3 Moderate decrease in GFR 30-59 4 Severe decrease in GFR 15-29 5 Kidney failure <15 (or dialysis) 20 RUN DATE: 02/28/13 [facility] LAB LIVE PAGE 1 RUN TIME: [address] [place] [address] Specimen Inquiry Name: JO ANN MEADE : [address]: Farideh SINGH Acct: [id number] Unit: [id number] AGE: 48 Location: [facility] Re02/26/13 SEX: F Status: REG REF SPEC: [id number] FAISAL: 02/26/13 [facility] DR: Farideh SINGH REQ: [id number] RECD: 02/26/13 STATUS: COMP _ SOURCE: URINE SPDESC: ORDERED: Urine Culture COMMENTS: Pt has taken Pyridium (change in color of urine). QUERIES: [facility] Number [id number] Procedure Result Verified Site Urine Culture Final 02/28/13- 0904 ML Organism 1 ESCHERICHIA COLI [place] Count >100,000 (Many) CFU/ML 1. ESCHERICHIA COLI M.I.C. RX --------- ------ Ampicillin <=2 S Cefazolin <=4 S Cefepime <=1 S Ceftriaxone <=1 S Ciprofloxacin <=0.25 S Gentamicin <=1 S Imipenem <=0.25 S Levofloxacin <=0.12 S Meropenem <=0.25 S Nitrofurantoin <=16 S Tetracycline <=1 S Pipercillin/Tazobactam <=4 S Trimethoprim/Sulfamethoxazole <=20 S Amoxicillin/Clavulanic Acid 4 S Aztreonam <=1 S Contact the Microbiology Department for any additional antibiotic reporting. END OF REPORT * ML=Testing performed at Main Lab DEPARTMENT OF PATHOLOGY, [address] [place] [address] Kg Hughes M.D. Director [facility] Permit #[id number] HDL Interpretation: Undesirable: High Risk: Less than 40 mg/dL Desirable: Low Risk: Greater than 60 mg/dL 22 LDL Interpretation: Low Risk Optimal Level: LDL Less than 100 mg/dL Near or Above Optimal: LDL 100-129 mg/dL Borderline High Risk: LDL 130-159 mg/dL High Risk: LDL 160-189 mg/dL Very High Risk: LDL Greater than 189 mg/dL 23 Results suggest response to immunization or prior exposure to the virus. -- REFERENCE VALUE -- Vaccinated: Positive Unvaccinated: Negative 24 Test Performed by: [place] [address] Dean Of Chapel: Mike Swan III, M.D. 25 HDL Interpretation: Undesirable: High Risk: Less than 40 MG/DL Desirable: Low Risk: Greater than 60 MG/DL 26 LDL Interpretation: Low Risk Optimal Level: LDL Less than 100 MG/DL Near or Above Optimal: LDL 100-129 MG/DL Borderline High Risk: LDL 130-159 MG/DL High Risk: LDL 160-189 MG/DL Very High Risk: LDL Greater than 189 MG/DL 27 Because ethnic data is not always readily available, this report includes an eGFR for both -Americans and non- Americans. The National Kidney Disease Education Program (NKDEP) does not endorse the use of the MDRD equation for patients that are not between the ages of 18 and 70, are , have extremes of body size, muscle mass, or nutritional status, or are non- or non-. According to the National Kidney Foundation, irrespective of diagnosis, the stage of the disease is based on the level of kidney function: Stage Description GFR(mL/min/1.73 m(2)) 1 Kidney damage with normal or decreased GFR 90 2 Kidney damage with mild decrease in GFR 60-89 3 Moderate decrease in GFR 30-59 4 Severe decrease in GFR 15-29 5 Kidney failure <15 (or dialysis) 28 ---- RUN DATE: 03/24/11 [facility] NMI LIVE PAGE 1 RUN TIME: 1102 Specimen Inquiry RUN USER: INTERFACE -- Name: MEADEJO ANN Status: REG REF Re03/22/11 Age/Sex: 46/F Unit#: [id number] Location: [facility] Carpio. : 65 -- Specimen: [id number] SOUT Spec Date: 03/22/[address]: Ajay cardona MD Spec Type: CYTOLOGY Received: 03/23/11-1510 Copies to: Sourav crawford MD SOURCE ECTOCERVICAL/ENDOCERVICAL Thin Prep with Reflex HPV Test PATIENT INFORMATION ACTUAL COLLECTION DATE: 03/22/11 ? No POST MENOPAUSAL? No HYSTERECTOMY? No PREVIOUS ABNORMAL PAP SMEARS No LAST MENSTRUAL PERIOD: 02/23/11 ADEQUACY OF SPECIMEN Satisfactory for evaluation * Transformation zone component identified * DIAGNOSIS NEGATIVE FOR INTRAEPITHELIAL LESION OR MALIGNANCY * NOTE Specimen sent to [facility] in [place], [place] on 03/24/11 by KASSI at 0855. Results will be reported separately in an addendum. This Pap test was evaluated with the assistance of the [employer] Pap Test Imaging System. The Pap Smear is a screening test designed to aid in the detection of premalign ant and malignant conditions of the uterine cervix. It is not a diagnostic procedure a nd should not be used as the sole means of detecting cervical cancer. Both false- positiv e and false-negative reports do occur. Depending on your risk status, a Pap smear gabriela uld be obtained and evaluated every one to three years. -- DEPARTMENT OF PATHOLOGY, [address] [place] [address] [facility] Permit #[id number] Kg Hughes M.D. Director Abdirashid Terry M.D. Foxing Painter Dir leatha -- -- RUN DATE: 03/24/11 [facility] NMI LIVE PAGE 2 RUN TIME: 1101 Specimen Inquiry RUN USER: INTERFACE -- Name: JO ANN MEADE Status: REG REF Re03/22/11 Age/Sex: 46/F Unit#: [id number] Location: [facility] BrownO.B. : 65 -- -- CONTINUED -- Initial evaluation performed by Kanu KIM CT([facility]) 03/24/11 Final Interpretation electronically signed by: Kanu KIM([facility]) 03/24/11 1101 -- -- DEPARTMENT OF PATHOLOGY, [address] [place] [address] [facility] Permit #[id number] Kg Hughes M.D. Director Abdirashid Terry M.D. Foxing Painter Dir leatha -- 29 [PITHOMYCES SPECIES] Test performed by: [facility] [address] [place] [id number] 30 PITHOMYCES SPECIES 31 TOENAIL CLIPPINGS 32 FID^ISOLATE SENT TO [facility] FOR IDENTIFICATION^MOLD 33 Anion gap measurement may be of limited value in the presence of any alkalosis, especially in a combined acid base disorder. . 34 Note change in reference range as of 12/14/07. The change was based on recommendations from the [place] [employer]. 35 Please note change in reference range effective 07 . 36 A metabolite of Naproxen, O-desmethylnaproxen, has been shown to interfere with the Jendrassik-Venus method for measuring total bilirubin. Samples from patients who have taken Naproxen have shown spurious elevation in total bilirubin levels. 37 Because ethnic data is not always readily available, this report includes an eGFR for both -Americans and non- Americans. The National Kidney Disease Education Program (NKDEP) does not endorse the use of the MDRD equation for patients that are not between the ages of 18 and 70, are , have extremes of body size, muscle mass, or nutritional status, or are non- or non-. According to the National Kidney Foundation, irrespective of diagnosis, the stage of the disease is based on the level of kidney function: Stage Description GFR(mL/min/1.73 m(2)) 1 Kidney damage with normal or decreased GFR 90 2 Kidney damage with mild decrease in GFR 60-89 3 Moderate decrease in GFR 30-59 4 Severe decrease in GFR 15-29 5 Kidney failure <15 (or dialysis) 38 Anion gap measurement may be of limited value in the presence of any alkalosis, especially in a combined acid base disorder. . 39 Note change in reference range as of 12/14/07. The change was based on recommendations from the [place] [employer]. 40 Please note change in reference range effective 07 . 41 Because ethnic data is not always readily available, this report includes an eGFR for both -Americans and non- Americans. The National Kidney Disease Education Program (NKDEP) does not endorse the use of the MDRD equation for patients that are not between the ages of 18 and 70, are , have extremes of body size, muscle mass, or nutritional status, or are non- or non-. According to the National Kidney Foundation, irrespective of diagnosis, the stage of the disease is based on the level of kidney function: Stage Description GFR(mL/min/1.73 m(2)) 1 Kidney damage with normal or decreased GFR 90 2 Kidney damage with mild decrease in GFR 60-89 3 Moderate decrease in GFR 30-59 4 Severe decrease in GFR 15-29 5 Kidney failure <15 (or dialysis) 42 ---- RUN DATE: 08/13/09 [facility] NMI LIVE PAGE 1 RUN TIME: 1110 Specimen Inquiry RUN USER: INTERFACE -- Name: JO ANN MEADE Status: REG REF Re08/12/09 Age/Sex: 44/F Unit#: [id number] Location: [facility] : 65 -- Specimen: [id number] SOUT Spec Date: 08/12/[address]: Ajay cardona MD Spec Type: CYTOLOGY Received: 08/12/09-1449 Copies to: Sourav crawford MD SOURCE ECTOCERVICAL/ENDOCERVICAL Thin Prep with Reflex HPV Test PATIENT INFORMATION ACTUAL COLLECTION DATE: 08/12/09 ? No POST MENOPAUSAL? No HYSTERECTOMY? No PREVIOUS ABNORMAL PAP SMEARS No LAST MENSTRUAL PERIOD: 07/29/09 ADEQUACY OF SPECIMEN Satisfactory for evaluation * Transformation zone component identified * DIAGNOSIS NEGATIVE FOR INTRAEPITHELIAL LESION OR MALIGNANCY * This Pap test was evaluated with the assistance of the [employer] Pap Test Imaging System. The Pap Smear is a screening test designed to aid in the detection of premalign ant and malignant conditions of the uterine cervix. It is not a diagnostic procedure a nd should not be used as the sole means of detecting cervical cancer. Both false- positiv e and false-negative reports do occur. Depending on your risk status, a Pap smear gabriela uld be obtained and evaluated every one to three years. Initial evaluation performed by Kanu KIM([facility]) 08/13/09 Final Interpretation electronically signed by: Kanu KIM([facility]) 08/13/09 1110 -- DEPARTMENT OF PATHOLOGY, [address] [place] [address] [facility] Permit #[id number] Kg Hughes M.D. Director Abdirashid Terry M.D. Foxing Painter Dir leatha -- 43 Anion gap measurement may be of limited value in the presence of any alkalosis, especially in a combined acid base disorder. . 44 Note change in reference range as of 12/14/07. The change was based on recommendations from the [place] [employer]. 45 Please note change in reference range effective 07 . 46 Because ethnic data is not always readily available, this report includes an eGFR for both -Americans and non- Americans. The National Kidney Disease Education Program (NKDEP) does not endorse the use of the MDRD equation for patients that are not between the ages of 18 and 70, are , have extremes of body size, muscle mass, or nutritional status, or are non- or non-. According to the National Kidney Foundation, irrespective of diagnosis, the stage of the disease is based on the level of kidney function: Stage Description GFR(mL/min/1.73 m(2)) 1 Kidney damage with normal or decreased GFR 90 2 Kidney damage with mild decrease in GFR 60-89 3 Moderate decrease in GFR 30-59 4 Severe decrease in GFR 15-29 5 Kidney failure <15 (or dialysis) 47 Expected Values: IgG <1:10 IgM <1:10 The presence of IgM class antibodies or a fourfold or greater rise in paired sera IgG titer indicates recent infection. The presence of demonstrable IgG generally indicates past exposure. Test Performed by: [facility] Dpt of Lab Med and Pathology [address] [place] [address] Dean Of Chapel: Mike Swan III, M.D. 48 Expected Values: IgG <1:10 IgM <1:10 The presence of IgM class antibodies or a fourfold or greater rise in paired sera IgG titer indicates recent infection. The presence of demonstrable IgG generally indicates past exposure. Test Performed by: [facility] of Lab Med and Pathology [address] [place] [address] Dean Of Chapel: Mike Swan III, M.D. 49 This test was developed and its performance characteristics determined by Laboratory Medicine and Pathology, [facility]. This test has not been cleared or approved by the U.S. Food and Drug Administration. Test performed by: [facility] [address] [place], [place] [address] N^Negative for Bordetella pertussis/parapertussis DNA^BPPCR 50 Anion gap measurement may be of limited value in the presence of any alkalosis, especially in a combined acid base disorder. . 51 H H Check Failed 52 Anion gap measurement may be of limited value in the presence of any alkalosis, especially in a combined acid base disorder. . 53 Anion gap measurement may be of limited value in the presence of any alkalosis, especially in a combined acid base disorder. . 54 Anion gap measurement may be of limited value in the presence of any alkalosis, especially in a combined acid base disorder. . 55 Anion gap measurement may be of limited value in the presence of any alkalosis, especially in a combined acid base disorder. . 56 Classification: Borderline High . 57 CALCULATED LDL APPROXIMATES THE VALUE OF A DIRECT LDL MEASUREMENT. Classification: Borderline High . Procedures Date CPT Code Description Status Comment 09/03/2016 19963 Electrocardiogram Complete Completed 04/20/2016 75968 X-Ray Chest Two Views Completed 09/19/2015 Colonoscopy Completed 2015:polyps, biopsies epnding, fu 5yrs tubular adenoma Document: 09/19/15 - GI Path/Ka 08/11/2015 37244 Electrocardiogram Complete Completed 10/25/2013 85623 Electrocardiogram Complete Completed 09/10/2013 67473 Electrocardiogram Complete Completed 05/01/2012 69757 Electrocardiogram Complete Completed 10/09/2010 05952 Electrocardiogram Complete Completed 10/09/2010 03683 Tympanometry Completed 10/09/2010 25283 Pure Tone, Threshold Completed 10/09/2010 45242 Biopsy Skin Lesion Single Completed 08/14/2010 49693 Destruction Of Skin Lesions Up Completed To 14 Flat Warts/Molluscum Contag 04/14/2010 98023 Destruction Of Skin Lesions Up Completed To 14 Flat Warts/Molluscum Contag 07/08/2009 78503 Electrocardiogram Complete Completed 03/14/2007 92259 Electrocardiogram Complete Completed Encounters Type Date Location Provider CPT E/M Dx Office Visit 05/30/2017 9:45a Main Office Adis Boggs D.O. 40910 I10 F33.1 F41.9 M25.512 Office Visit 04/15/2017 11:20a Main Office Bethel Andres 29111 Z02.89 Office Visit 03/14/2017 8:55a Main Office Adis Boggs D.O. 81748 I10 F33.1 F41.9 Z79.899 Office Visit 09/03/2016 11:15a Main Office Sourav Woodson M.D. 69054 I10 F90.0 F33.1 R05 M54.5 Z23 Z79.899 Office Visit 04/20/2016 9:45a Main Office Sourav Woodson M.D. 95037 R53.81 R05 Office Visit 02/19/2016 3:25p Main Office Sourav Woodson M.D. 60058 Z23 Z71.89 Z23 Z41.8 Office Visit 02/06/2016 10:15a Main Office Sourav Woodson M.D. 95425 I10 F90.0 F33.1 Office Visit 08/11/2015 11:30a Main Office Sourav Woodson M.D. 67610 I10 R20.9 Office Visit 05/09/2015 8:55a Main Office Sourav Woodson M.D. 45302 I10 F90.0 F33.1 Z12.11 Office Visit 03/28/2015 1:30p Main Office Sourav Woodson M.D. 35574 S39.012A Office Visit 01/14/2015 3:15p Main Office Sourav Woodson M.D. 34789 I10 F51.02 F90.0 Z71.89 S90.122A Office Visit 09/26/2014 9:15a Main Office Sourav Woodson M.D. 51460 455.9 401.1 780.4 Office Visit 08/09/2014 3:00p Main Office Sourav Woodson M.D. 64507 455.4 455.3 Office Visit 06/13/2014 2:00p Main Office Sourav Woodson M.D. 14743 401.1 314.00 278.02 V85.24 Office Visit 03/07/2014 8:55a Main Office Sourav Woodson M.D. 20088 401.1 314.00 300.00 465.9 Office Visit 10/27/2013 11:00a Main Office Sourav Woodson M.D. 86213 782.3 401.1 300.00 296.32 Office Visit 10/25/2013 10:00a Main Office Sourav Woodson M.D. 58993 401.1 782.3 300.00 296.32 780.4 V70.3 v74.1 Office Visit 09/10/2013 9:05a Main Office Sourav Woodson M.D. 23554 401.1 300.00 296.32 Office Visit 08/15/2013 2:30p Main Office Adis Boggs D.O. 80476 401.1 300.00 723.1 Office Visit 06/11/2013 1:30p Main Office oSurav Woodson M.D. 01835 300.00 296.32 Office Visit 05/11/2013 3:00p Main Office Sourav Woodson M.D. 30113 300.00 296.32 Office Visit 04/26/2013 10:00a Main Office Sourav Woodson M.D. 17391 401.1 311 V65.40 Office Visit 03/07/2013 1:20p Main Office Bethel Andres 39608 788.1 401.1 Office Visit 02/24/2013 11:50a Main Office Bethel Andres 71079 788.1 788.20 Office Visit 11/10/2012 9:40a Main Office Bethel Andres 04748 V70.0 V70.3 V74.1 401.1 272.0 709.8 Office Visit 10/30/2012 1:10p Main Office Sourav Woodson M.D. 40946 V70.3 401.1 V65.49 v06.4 v07.2 311 719.46 V74.1 Office Visit 05/01/2012 10:00a Main Office Sourav Woodson M.D. 22378 401.1 783.1 V77.91 v04.81 v07.2 314.00 Office Visit 10/29/2011 10:00a Main Office Sourav Woodson M.D. 55350 078.12 078.19 401.1 314.00 Office Visit 04/29/2011 4:15p Main Office Sourav Woodson M.D. 62481 401.1 314.00 Office Visit 11/05/2010 4:15p Main Office Sourav oWodson M.D. 35522 110.1 078.19 Office Visit 10/09/2010 8:55a Main Office Sourav Woodson M.D. 66951 401.1 472.0 384.09 389.9 078.19 110.1 700 110.4 Office Visit 08/14/2010 2:45p Main Office Romeo Amaya M.D. 18104 078.10 Office Visit 04/21/2010 10:20a Main Office Bethel Andres 15402 462 465.9 786.2 401.1 Office Visit 04/14/2010 2:10p Main Office Sourav Woodson M.D. 70203 078.10 705.81 401.1 300.4 314.00 278.02 Office Visit 11/04/2009 3:15p Main Office Sourav Woodson M.D. 19029 401.1 300.4 704.00 Office Visit 07/08/2009 1:00p Main Office Sourav Woodson M.D. 26852 401.1 300.4 314.00 Office Visit 06/17/2009 3:45p Main Office Sourav Woodson M.D. 27068 462 Office Visit 02/18/2009 2:30p Main Office Sourav Woodson M.D. 93013 401.1 300.4 723.1 Office Visit 11/05/2008 1:55p Main Office Sourav Woodson M.D. 98946 401.1 Office Visit 10/14/2008 2:45p Main Office Sourav Woodson M.D. 44998 487.1 Office Visit 09/10/2008 1:30p Main Office Sourav Woodson M.D. 27231 786.2 384.09 V74.8 Office Visit 07/06/2008 8:45a Main Office Sourav Woodson M.D. 54088 401.1 300.4 700 Office Visit 03/26/2008 3:45p Main Office Sourav Woodson M.D. 97353 461.2 Office Visit 03/09/2008 9:00a Main Office Sourav Woodson M.D. 96132 401.1 300.4 462 V06.1 V07.2 Office Visit 11/21/2007 1:55p Main Office Sourav Woodson M.D. 18115 401.1 Office Visit 08/21/2007 4:45p Main Office Sourav Woodson M.D. 09619 401.1 300.4 Office Visit 03/14/2007 2:30p Main Office Sourav Woodson M.D. 86773 401.1 704.00 V04.81 V07.2 Office Visit 12/20/2006 4:00p Main Office Sourav Woodson M.D. 99618 401.1 Office Visit 09/20/2006 4:30p Main Office Sourav Woodson M.D. 08160 401.1 782.3 704.00 Office Visit 09/06/2006 4:30p Main Office Sourav Woodson M.D. 71634 462 465.9 Office Visit 06/21/2006 3:30p Main Office Sourav Woodson M.D. 96610 401.1 300.4 787.1 784.0 Office Visit 03/22/2006 12:55p Main Office Sourav Woodson M.D. 22023 944.18 401.1 300.4 780.79 704.8 V04.81 V06.5 V07.2 Office Visit 12/20/2005 10:15a Main Office Sourav Woodson M.D. 30677 401.1 300.4 784.2 842.01 Office Visit 09/25/2005 9:15a Main Office Sourav Woodson M.D. 63287 401.1 300.4 Office Visit 06/22/2005 3:30p Main Office Sourav Woodson M.D. 72599 401.1 300.4 461.0 Office Visit 06/07/2005 11:30a Main Office Romeo Amaya M.D. 04708 461.9 401.1 Office Visit 03/23/2005 1:55p Main Office Sourav Woodson M.D. 87233 401.1 300.4 784.0 Office Visit 01/16/2005 9:00a Main Office Sourav Woodson M.D. 52847 401.1 300.4 784.0 Office Visit 08/06/2004 2:45p Main Office Sourav Woodson M.D. 82648 401.1 723.5 300.4 784.0 Office Visit 07/22/2004 10:45a Main Office Sourav Woodson M.D. 93007 401.1 723.5 300.4 784.0 Plan of Care Future Appointment(s):11/28/2017 4:45 pm - Adis Boggs D.O. at Main Jstohk8505/30/2017 - Adis Boggs D.O.I10 Essential (primary) hypertensionFollow up:6 months recheck Anx/Dep/HTNF33.1 Major depressive disorder, recurrent, qfxqpzypK12.9 Anxiety disorder, caziltavbroK59.512 Pain in left shoulderFollow up:Exam today suggested capsular etiology for shoulder pain and frozen shoulder/adhesive capsulitis early in course is suspected.
[2017-06-23 09:58] VITALS: BP 150/102
--- NOTE | 2017-06-23 10:07 | UC ---
FLU HPI - HPI Summary HPI Summary: Pt presents with dry cough, fatigue, and body aches that began 5 days ago. She tells me that her daughter was sick with the flu 2 weeks ago, but had more generalized discomfort and a fever - whereas pt does not. She is most concerned about her persistent dry cough, it is keeping her up at night. She has been taking mucinex and robitussin with good relief of her cough, but symptoms soon return. Denies fever, chills, SOB, chest pain, abdominal pain, n/v/d/c. - History of Current Complaint Chief Complaint: UCGeneralIllness Stated Complaint: SORE THROAT, AND ACHES Time Seen by Provider: 06/23/17 10:06 Hx Obtained From: Patient Hx Last Menstrual Period: 05/2015 Onset/Duration: Gradual Onset Severity Currently: Mild Severity Initially: Mild Pain Intensity: 4 Pain Scale Used: 0-10 Numeric - Allergy/Home Medications Allergies/Adverse Reactions: Allergies Allergy/AdvReac Type Severity Reaction Status Date / Time No Known Allergies Allergy Verified 06/23/17 09:52 Home Medications: Home Medications Bisoprolol/Hydrochlorothiazide [Ziac 2.5-6.25 mg-] 1 tab PO DAILY 06/23/17 [ History Confirmed 06/23/17] Guaifenesin/Dextromethorphan [Mucinex Dm ER 1,200-60 mg Tab] 1 tab PO Q12HR PRN 06/23/17 [History Confirmed 06/23/17] PMH/Surg Hx/FS Hx/Imm Hx Previously Healthy: Yes Cardiovascular History: Hypertension Psychological History: Anxiety - Surgical History Surgical History: Yes Surgery Procedure, Year, and Place: Adenoid (1974), L/ACL repair (1996), C- section (2001) - Family History Known Family History: Positive: Unknown, Cardiac Disease, Hypertension, Other - [place] on both maternal and paternal sides - Social History Occupation: Employed Full-time Lives: With Family Alcohol Use: Occasionally Substance Use Type: None Smoking Status (MU): Never Smoked Tobacco - Immunization History Most Recent Influenza Vaccination: fall 2015 Review of Systems Constitutional: Fatigue, Other - body aches Skin: Negative Eyes: Negative ENT: Negative Respiratory: Cough Cardiovascular: Negative Gastrointestinal: Negative Neurological: Negative Psychological: Negative All Other Systems Reviewed And Are Negative: Yes Physical Exam - Summary Physical Exam Summary: GENERAL: NAD. WDWN. No pain distress. SKIN: No rashes, sores, ulcers, masses, lesions. No clubbing or cyanosis. HEENT: Head: AT/NC Eyes: EOM intact. Conjunctiva clear without inflammation or discharge. Ears: Hearing grossly normal. TMs intact, no bulging, erythema, or edema. Nose: Nasal mucosa pink and moist. NTTP maxillary and frontal sinus. Throat: Posterior oropharynx without exudates, erythema, or tonsillar enlargement. Uvula midline. NECK: Supple. Nontender. No lymphadenopathy. CHEST: CTAB. No r/r/w. No accessory muscle use. Breathing comfortably and in no distress. CV: RRR. Without m/r/g. Pulses intact. Brisk cap refill. NEURO: Alert. CN II-XII grossly intact. PSYCH: Age appropriate behavior. Triage Information Reviewed: Yes Vital Signs: Initial Vital Signs Temp 97.9 F 06/23/17 09:54 Pulse 73 06/23/17 09:54 Resp 16 06/23/17 09:54 BP 150/102 06/23/17 09:54 Pulse Ox 100 06/23/17 09:54 Flu Course/Dx - Course Course Of Treatment: POC flu negative. Suspect viral bronchitis. Will try her with tessalon and cough syrup at bedtime. - Differential Dx/Diagnosis Provider Diagnoses: Bronchitis Discharge - Discharge Plan Condition: Stable Disposition: HOME Prescriptions: Benzonatate CAP* [Tessalon 100 MG CAP*] 100 mg PO TID PRN #21 cap PRN Reason: Cough Codeine Phosphate/Guaifenesin [Guaifen-Codeine 100-10 mg/5 ml] 5 ml PO BEDTIME PRN #30 ml MDD 5mL PRN Reason: Cough Patient Education Materials: Viral Syndrome (ED) Forms: *Work Release Referrals: Adis Boggs DO [Primary Care Provider] - Additional Instructions: If you develop a fever, shortness of breath, chest pain, new or worsening symptoms - please call your PCP or go to the ED. Your blood pressure was high at todays visit. Please see your primary provider within 4 weeks for recheck and re-evaluation.
== END 2017-06-23 10:58 | disposition home or self-care (01) ==
LOC: UCEAST 09:29
DX: J40 Bronchitis, not specified as acute or chronic (principal); I10 Essential (primary) hypertension; F41.9 Anxiety disorder, unspecified
CPT/HCPCS: 87502; 99212; G0463